=== PATIENT | female | born 2000 | race Caucasian/White ===

== ENCOUNTER 2023-10-23 10:07 | Day surgery (SDC) | payer BC ==
[2023-10-18 15:38] VITALS: BMI 25.7
[~2023-10-23 10:07] MED LIST: LACTATED RINGERS SOLUTION 1,000 ML IV SCH; ONDANSETRON 4 MG/2 ML VIAL IVPUSH PRN; oxyCODONE HCL 5 MG TABLET PO PRN
[2023-10-23] MEDS ORDERED: BUPIVACAINE HCL/EPINEPHRINE/PF 30 ML VIAL IJ ONE (12:41)
[2023-10-23] MEDS ORDERED: DEXAMETHASONE SOD PHOSPHATE 4 MG/1 ML VIAL ONE (12:41)
[2023-10-23] MEDS ORDERED: ONDANSETRON 4 MG/2 ML VIAL ONE (12:41)
[2023-10-23] MEDS ORDERED: MIDAZOLAM HCL 2 MG/2 ML SINGLE DOSE VIAL ONE (12:42)
[2023-10-23] MEDS ORDERED: ROCURONIUM BROMIDE 50 MG/5 ML SYRINGE ONE (12:42)
[2023-10-23] MEDS ORDERED: SUCCINYLCHOLINE CHLORIDE 200 MG/10 ML SYRINGE ONE (13:05)
[2023-10-23] MEDS ORDERED: BACITRACIN ZINC 15 GM TUBE TOPICAL OINTMENT ONE (13:38)
[2023-10-23] MEDS ORDERED: HYDROmorphone HCL/PF 1 MG/ML VIAL ONE (13:41)
[2023-10-23] MEDS: BUPIVACAINE 0.25% /EPI 1:200,000 10 ML VIAL NR ONE (13:43)
[2023-10-23] MEDS ORDERED: PROPOFOL 20 ML ONE (15:12)
[2023-10-23] MEDS ORDERED: SUGAMMADEX SODIUM 200 MG/2 ML VIAL ONE (15:21)
[2023-10-23] MEDS ORDERED: ONDANSETRON 4 MG/2 ML VIAL IVPUSH PRN (15:49)
[2023-10-23] MEDS ORDERED: oxyCODONE HCL 5 MG TABLET PO PRN ×2 (15:49)
[2023-10-23] MEDS ORDERED: ACETAMINOPHEN 325 MG TABLET (FP) PO PRN (15:49)
[2023-10-23] MEDS: ACETAMINOPHEN 1000 MG/100 ML BAG IVPB ONE (15:55)
[2023-10-23] MEDS ORDERED: LACTATED RINGERS SOLUTION 1,000 ML IV SCH ×2 (16:00)
[2023-10-23 16:50] VITALS: RESP 16
[2023-10-23 17:15] VITALS: BP 90/58; PULSE 72; TEMP 97.2
[2023-10-23] MEDS ORDERED: CEFAZOLIN 1 GM in DEXTROSE 5%-WATER - 50 ML IVPB SCH (21:00)
== END 2023-10-23 17:30 | disposition home or self-care (01) ==
LOC: FASU 10:07
PROVIDERS: ATTEND Plastic Surgery
PROC: 09RM0KZ Replacement of Nasal Septum with Nonautologous Tissue Substitute, Open Approach (ICD-10-PCS; principal; 2023-10-23 13:52)
DX: J34.2 Deviated nasal septum (principal); J34.89 Other specified disorders of nose and nasal sinuses
CPT/HCPCS: 81025; 88304-TC; 94760; J0131